=== PATIENT | female | born 1960 | race Caucasian/White ===

== ENCOUNTER 2017-01-12 08:33 | Outpatient (CLI) ==
[2015-10-13 14:41] VITALS: BMI 33.5
[2017-01-12 08:51] LABS: BASOPHILS # (AUTO) 0.1 K/uL (0-0.2); BASOPHILS % (AUTO) 0.4 % (0.0-3.0); EOSINOPHILS # (AUTO) 0.2 K/ul (0.0-0.7); EOSINOPHILS % (AUTO) 1.4 % (0.0-7.0); HEMATOCRIT 45.3 % (37.0-47.0); HEMOGLOBIN 15.4 g/dl (12.0-16.0); IMMATURE GRANULOCYTE % (AUTO) 0.3 % (0.0-5.0); LYMPHOCYTES % (AUTO) 33.8 (10.0-50.0); MEAN CORPUSCULAR HEMOGLOBIN 30.1 pg (27.0-31.0); MEAN CORPUSCULAR VOLUME 88.5 fl (81.0-99.0); MONOCYTES # (AUTO) 0.9 K/uL (0.4-2.0); MONOCYTES % (AUTO) 7.4 (0-10); NEUTROPHILS # (AUTO) 6.7 K/ul (2.0-6.9); NEUTROPHILS % (AUTO) 56.7; PLATELET COUNT 331 10^3/uL (140-440); RED BLOOD COUNT 5.12 10^6/ul (4.20-5.40); WHITE BLOOD COUNT 11.91 K/ul (4.6-10.2)
[2017-01-12 09:06] LABS: BILIRUBIN,URINE Negative (NEGATIVE); KETONES,URINE Negative (NEGATIVE); LEUKOCYTE ESTERASE ,URINE Negative (NEGATIVE); NITRITE,URINE Negative (NEGATIVE); PH,URINE 5.5 (5-9); PROTEIN,URINE Negative (NEGATIVE); URINE, BLOOD 2+ (NEGATIVE)
[2017-01-12 09:15] LABS: ADD URINE MICROSCOPIC YES
--- NOTE | 2017-01-12 09:21 | CT ---
EXAM: CT of the abdomen pelvis without contrast History: Abdominal pain. Comparison: 10/13/2015 Technique: Multiplanar CT images through the abdomen pelvis were obtained without the administratio n of IV contrast Findings: Lung bases are clear. No acute osseous abnormalities. Scoliosis of the lumbar spine and m oderate to severe degenerative disc disease within the lumbar spine. Status post cholecystectomy. Calcified granulomas within the liver and spleen. Long right lobe of the liver again noted. No peripancreatic inflammation. Atherosclerotic vascular calcifications. A drenal glands are unremarkable. No renal stones and no hydronephrosis. No bowel obstruction. Prom inent submucosal fat deposition again seen within the hurt of the right colon and cecum. Colonic di verticulosis. Bladder is not well distended. No free air and no ascites. Atrophic uterus. The vi sualized appendix is not dilated or inflamed. Impression: No acute intra-abdominal or pelvic process.
[2017-01-12 09:27] LABS: ALBUMIN 3.4 g/dL (3.4-5.0); ALBUMIN/GLOBULIN RATIO 0.85; ANION GAP 15.5; BILIRUBIN,TOTAL 0.32 mg/dL (0.00-1.20); BUN/CREATININE RATIO 22.05; CALCIUM 9.2 mg/dL (8.2-10.2); CHOL/HDL RATIO 5.7 (4.5-5.5); CREATININE 0.68 mg/dL (0.60-1.30); POTASSIUM 4.5 mmol/L (3.5-5.10); TOTAL PROTEIN 7.4 g/dL (6.4-8.2)
== END 2017-01-12 08:34 | disposition home or self-care (01) ==
LOC: RAD 08:33
PROVIDERS: ATTEND Nurse Practitioner Family
DX: R73.9 Hyperglycemia, unspecified (principal); Z00.00 Encounter for general adult medical examination without abnormal findings; R10.9 Unspecified abdominal pain; R30.9 Painful micturition, unspecified; R10.811 Right upper quadrant abdominal tenderness
CPT/HCPCS: 36415; 80053; 80061; 81001; 83036; 84443; 85025

== ENCOUNTER 2017-01-26 08:38 | Outpatient (CLI) ==
[2015-10-13 14:41] VITALS: BMI 33.5
[2017-01-26 09:04] LABS: BILIRUBIN,URINE Negative (NEGATIVE); KETONES,URINE Negative (NEGATIVE); LEUKOCYTE ESTERASE ,URINE Negative (NEGATIVE); NITRITE,URINE Negative (NEGATIVE); PH,URINE 5.5 (5-9); PROTEIN,URINE Negative (NEGATIVE); URINE, BLOOD 1+ (NEGATIVE)
[2017-01-26 09:13] LABS: ADD URINE MICROSCOPIC YES
== END 2017-01-26 08:39 | disposition home or self-care (01) ==
LOC: LAB 08:38
PROVIDERS: ATTEND Nurse Practitioner Family
DX: R31.9 Hematuria, unspecified (principal)
CPT/HCPCS: 81001

== ENCOUNTER 2017-02-04 09:24 | Outpatient (CLI) ==
[2015-10-13 14:41] VITALS: BMI 33.5
--- NOTE | 2017-02-04 10:07 | DI ---
EXAM: CERVICAL SPINE, 3 VIEWS HISTORY: Neck pain. FINDINGS: No comparison. There is at least mild diffuse facet arthropathy. Partial bony fusion of the C2 and C3 posterior elements cannot be excluded. Vertebral bodies have normal height and alignm ent. Intervertebral disc spaces are preserved. No scoliosis. Lateral masses of C1 and C2 are anselmo lly aligned and the odontoid process is intact. IMPRESSION: Facet arthropathy as described.
--- NOTE | 2017-02-04 10:09 | DI ---
EXAM: Six views of the lumbar spine. History: Lower back pain. Findings: Osteopenia. Atherosclerotic vascular calcifications. Severe levoscoliosis of the lumbar s pine. No definite fractures are seen. No subluxation. Moderate to severe multilevel degenerative disc space narrowing. Moderate to severe facet hypertrophy on the left at L5-S1. Scattered colonic stool. Cholecystectomy clips. Impression: 1. No acute osseous abnormality. 2. Moderate to severe degenerative changes. 3. Scoliosis.
--- NOTE | 2017-02-04 10:12 | DI ---
EXAM: Thoracic spine three view HISTORY: Pain in thoracic spine COMPARISON: None TECHNIQUE: Three views thoracic spine were performed FINDINGS: There is a moderate to severe rightward curvature thoracic and upper lumbar spine measuri ng 30 degrees using Ford technique, centered at T9-T10. Vertebral bodies normal height. No fracture . No subluxation. Mild multilevel chronic discogenic degenerative disease with intervertebral disc space narrowing osteophyte formation. Granulomatous calcification. IMPRESSION: 1. No fracture or subluxation. 2. Moderate to severe rightward curvature thoracic and upper lumbar spine measuring approximately 3 0 degrees. 3. Chronic discogenic degenerative disease
== END 2017-02-04 09:25 | disposition home or self-care (01) ==
LOC: RAD 09:24
PROVIDERS: ATTEND Nurse Practitioner Family
DX: M54.2 Cervicalgia (principal); M54.6 Pain in thoracic spine; M54.5 Low back pain

== ENCOUNTER 2017-04-18 08:32 | Outpatient (CLI) ==
[2015-10-13 14:41] VITALS: BMI 33.5
[2017-04-18 09:20] LABS: ALBUMIN 3.1 g/dL (3.4-5.0); ALBUMIN/GLOBULIN RATIO 0.84; ANION GAP 11.4; BILIRUBIN,TOTAL 0.28 mg/dL (0.00-1.20); BUN/CREATININE RATIO 15.62; CALCIUM 9.4 mg/dL (8.2-10.2); CHOL/HDL RATIO 6.6 (4.5-5.5); CREATININE 0.64 mg/dL (0.60-1.30); POTASSIUM 4.4 mmol/L (3.5-5.10); TOTAL PROTEIN 6.8 g/dL (6.4-8.2)
== END 2017-04-18 08:33 | disposition home or self-care (01) ==
LOC: LAB 08:32
PROVIDERS: ATTEND Nurse Practitioner Family
DX: E78.1 Pure hyperglyceridemia (principal); R73.03 Prediabetes
CPT/HCPCS: 36415; 80053; 80061; 83036

== ENCOUNTER 2018-10-02 08:20 | Emergency (ER) ==
[2018-10-02 08:30] VITALS: BP 127/73; TEMP 98.5; BMI 35.2
--- NOTE | 2018-10-02 09:18 | CT ---
EXAM: CT THORAX HISTORY: Cough, congestion. TECHNIQUE: CT thorax without intravenous contrast. Multiplanar images presented. COMPARISON: None FINDINGS: Normal heart size. No pericardial effusion. There is mild to moderate atherosclerotic disease inclu ding coronary artery level. Limited evaluation of the mediastinum and hilar structures without the a dministration of intravenous contrast agent. There are prominent mediastinal lymph nodes some of whi ch are calcified. No definite hilar mass is seen. The lungs reveal mild infiltrates in the left lower lobe. No susie consolidation. Tiny 13 mm pneuma tocele in the anterior right upper lobe incidentally noted. There is no vascular congestion, pneumot horax or pleural fluid. The bones reveal degenerative disc and facet disease of the spine and scoliosis. IMPRESSION: 1. Subtle pneumonia in the left lower lobe is suggested. No vascular congestion appear 2. Prominent mediastinal lymph nodes some which are calcified. These could be related to previous g ranulomatous disease. A malignant nature would be less likely within the differential. 3. Atherosclerosis.
--- NOTE | 2018-10-02 09:38 | ED.PDOC ---
General ED Provider: Dr. VERNA CRANDALL Chief Complaint: Cough Stated Complaint: cough, flu like symptoms Time Seen by Physician: 08:30 (seen with maria alejandra at all times also sunil on inital eval) Mode of Arrival: Walk-In Information Source: Patient Exam Limitations: No limitations Primary Care Provider: PATRICK HARRISON Nursing and Triage Documentation Reviewed and Agree: Yes Does patient meet sepsis criteria?: No System Inflammatory Response Syndrome: Not Applicable Sepsis Protocol: For patient's 13 years and over: Temp is 96.8 and below OR 101 and greater Pulse >90 BPM Resp >20/minute Acutely Altered Mental Status Are patient's symptoms suggestive of a new infection, such as: -Pneumonia -Skin, Soft Tissue -Endocarditis -UTI -Bone, Joint Infection -Implantable Device -Acute Abdominal Infection -Wound Infection -Meningitis -Blood Stream Catheter Infection -Unknown Respiratory Complaint Exam - Respiratory Complaint/Exam Onset/Duration: 5 days Symptoms Are: Still present Timing: Intermittent Initial Severity: Mild Current Severity: Mild Location: Nose, Throat, Chest Character: Reports: Non-productive cough Alleviating: Reports: None Associated Signs and Symptoms: Reports: URI, Nasal congestion, Sore throat. Denies: Rapid breathing, Dyspnea, Fever, Chills, Chest pain, Pleuritic chest pain, Wheezing, Hemoptysis, Dizziness, Calf pain, Calf swelling, Edema, Hoarseness, Sinus discomfort, Vomiting, Weight loss, Decreased oral intake, Increased thirst, Increased appetite, Increased urination Related History: Reports: Similar episode History of Healthcare-Acquired Pneumonia: No Related Surgical History: Reports: None Pulmonary Embolism Risk Factors: Smoking (3 only per day) Cardiac Risk Factors: Reports: None Pseudomonas Risk Factors: Reports: None Tuberculosis Risk Factors: Reports: None Status Asthmaticus Risk Factors: Reports: None Home Oxygen Use: No Recent Stress Test: No Recent Echo/LV Function: No Current Antibiotic Use: No Current Asthma Medication Use: No Respiratory Distress: None Inadequate Respiratory Effort: No Dysphagia Present: No Stridor Present: No JVD Present: No Accessory Muscle Use: No Retractions: Not Present Sinus Tenderness: None Grunting Respirations: No Kussmaul Respirations: No Differential Diagnoses: Pneumonia, Bronchitis Review of Systems - Review Of Systems Constitutional: Reports: Malaise Eyes: Reports: No symptoms Ears, Nose, Mouth, Throat: Reports: No symptoms Respiratory: Reports: Cough Cardiac: Reports: No symptoms GI: Reports: No symptoms : Reports: No symptoms Musculoskeletal: Reports: No symptoms Skin: Reports: No symptoms Neurological: Reports: No symptoms Endocrine: Reports: No symptoms Hematologic/Lymphatic: Reports: No symptoms All Other Systems: Reviewed and Negative Past Medical History - Past Medical History Previously Healthy: Yes Endocrine: Reports: None Cardiovascular: Reports: None Respiratory: Reports: None Hematological: Reports: None Gastrointestinal: Reports: None Genitourinary: Reports: None Neuro/Psych: Reports: None Musculoskeletal: Reports: None Cancer: Reports: None Last Menstrual Period: n/a - Surgical History General Surgical History: Reports: None - Family History Family History: Reports: None - Social History Smoking Status: Current every day smoker Hx Substance Use: Yes (Marijuana) Alcohol Screening: None - Immunizations Tetanus Shot up to Date: No Physical Exam - Physical Exam Appearance: Well-appearing, No pain distress, Well-nourished Eyes: BAILEY, EOMI, Conjunctiva clear ENT: Ears normal, Nose normal, Oropharynx normal Respiratory: Rhonchi Cardiovascular: RRR, Pulses normal, No rub, No murmur GI/: Soft, Nontender, No masses, Bowel sounds normal, No Organomegaly Musculoskeletal: Normal strength, ROM intact, No edema, No calf tenderness Skin: Warm, Dry, Normal color Neurological: Sensation intact, Motor intact, Reflexes intact, Cranial nerves intact, Alert, Oriented Psychiatric: Affect appropriate, Mood appropriate Interpretation - Radiology Interpretation Radiology Interpretation By: Radiologist Radiology Results: Positive (possible pneumonia) Critical Care Note - Critical Care Note Total Time (mins): 0 Course - Course Orders, Labs, Meds: Lab Review 10/02/18 08:35 Influ A Molecular Assay Negative by naat Influ B Molecular Assay Positive by naat H Orders Category Date Time Status FLU A/B MOLECULAR Stat LAB 10/02/18 08:34 Uncollected MOLECULAR GROUP A STREP Stat LAB 10/02/18 08:[address] CHEST W/O CONTRAST Stat RADS 10/02/18 08:30 Ordered Vital Signs: Temp Pulse Resp BP Pulse Ox 10/02/18 08:21 98.5 F 79 20 127/73 94 L Departure - Departure Time of Disposition: 09:38 Disposition: HOME SELF-CARE Discharge Problem: Cough, Influenza B Instructions: Pneumonia (ED) Condition: Good Pt referred to PMD for follow-up: Yes IPMP verified?: No Allergies/Adverse Reactions: Allergies ciprofloxacin [From Cipro] Allergy (Severe, Verified 10/02/18 08:34) confusion ciprofloxacin HCl [From Cipro] Allergy (Severe, Verified 10/02/18 08:34) confusion hydrocodone Adverse Reaction (Verified 10/02/18 08:34) Vomiting Home Medications: Ambulatory Orders 1 [No Reported Medications] 10/02/18 Disposition Discussed With: Patient
== END 2018-10-02 09:52 | disposition home or self-care (01) ==
LOC: ED 08:20
DX: R05 Cough (principal); J06.9 Acute upper respiratory infection, unspecified; R09.81 Nasal congestion; J02.9 Acute pharyngitis, unspecified; R53.81 Other malaise; Z72.0 Tobacco use; J11.1 Influenza due to unidentified influenza virus with other respiratory manifestations
CPT/HCPCS: 87502; 87651; 99283

== ENCOUNTER 2023-05-31 07:43 | Observation (INO) ==
--- NOTE | 2023-05-31 08:00 | ED.PDOC ---
General ED Provider: Dr. VERNA KRUSE MD Chief Complaint: Nausea/Vomiting Stated Complaint: Patient history of type 2 diabetes, hypercholesterolemia has discontinued all her medications and complains of frequent episodes of nausea, emesis, dry heaves and periumbilical abdominal pain for the past week. Patient states she is unable to tolerate solid or liquid foods. Denies diarrhea, fever, urinary symptoms. Time Seen by Provider: 05/31/23 07:53 Mode of Arrival: Walk-In Information Source: Patient Primary Care Provider: LADONNA DOWNEY PA-C Nursing and Triage Documentation Reviewed and Agree: Yes Review of Systems Review Of Systems Constitutional: Reports No symptoms Eyes: Reports No symptoms Ears, Nose, Mouth, Throat: Reports No symptoms Respiratory: Reports No symptoms Cardiac: Reports No symptoms GI: Reports Abdominal pain, Nausea, Poor appetite, Poor fluid intake and Vomiting : Reports No symptoms Musculoskeletal: Reports No symptoms Skin: Reports No symptoms Neurological: Reports No symptoms Endocrine: Reports No symptoms Hematologic/Lymphatic: Reports No symptoms All Other Systems: Reviewed and Negative [facility] Medical History Corneal abrasion S05.00XA - Injury of conjunctiva and corneal abrasion without foreign body, unspecified eye, initial encounter (ICD-10) Reassurance provided Rhinitis add cetirizine 10 mg po daily, flonase 1 spray each nostril daily increase fluids Use albuterol inhaler if needed f/u or go to ED if fever, sob occur J31.0 - Chronic rhinitis (ICD-10) Irregular heart rhythm ekg -will obtain tomorrow I49.9 - Cardiac arrhythmia, unspecified (ICD-10) Depression Doesn't make enough income F32.9 - Major depressive disorder, single episode, unspecified (ICD-10) Acute UTI ua in clinic today urine c&s macrobid 100mg po bid x 1 week N39.0 - URINARY TRACT INFECTION, SITE NOT SPECIFIED (ICD-10) Family History Grandfather/Grandmother Diabetes Depression Cardiac disease Social History Smoking and tobacco status: Current every day smoker Quit status: considering quitting Second hand smoke exposure: Yes Alcohol intake: never Substance use type: marijuana Sandy/hoahaoism: ORTHODOX Special sandy needs: No Agree to transfusion: Yes Adopted: No Caregiver/support person: No Foster care: No Household members: spouse Housing: apartment Marital status: M Lives independently: Yes Daycare: no daycare Number of children: 2 Number of grandchildren: 6 Highest education level completed: some college, no degree Financial difficulty paying for basics: not very hard service: No correction: No Current occupational status: employed Current occupation: [employer] Current occupational exposures/hazards: No Pets and animals: No Leisure activites: reading History of recent travel: No Sexually active: Yes Do you think of yourself as: straight/heterosexual Current gender identity: female Seatbelt use: always Helmet use: No Drives intoxicated or rides with intoxicated experienced truck driver: No Current diet type/program: regular Well-balanced diet: daily Caffeine: Yes (COFFEE SODA TEA) Eating out: 4 or more times/week Reads food labels: seldom or never During the past year weight has: increased > 10 lbs Water heater temperature set < 120 degrees: Yes Working smoke detector in home: Yes Fire extinguisher in home: Yes Carbon monoxide detector in home: Yes Firearms in home: No What type of physical activity do you participate in?: none Physical activity functional status: independent ambulation How many days of moderate to strenuous exercise, like a brisk walk, did you do in the last 7 days: 0 Surgical History History of musculoskeletal system surgery lypoma on back Z98.890 - Other specified postprocedural states (ICD-10) History of dental surgery Z92.89 - Personal history of other medical treatment (ICD-10) Status post cholecystectomy Z90.49 - Acquired absence of other specified parts of digestive tract (ICD- 10) Female Reproductive History Menstrual Hx Hysterectomy: No Physical Exam Physical Exam Appearance: Reports Ill-appearing Ill-appearing: Mild Pain Distress: None Eyes: Reports BAILEY, EOMI and Conjunctiva clear ENT: Reports Ears normal, Nose normal and Oropharynx normal Neck: Supple Respiratory: Reports Airway patent, Breath sounds clear and Breath sounds equal Cardiovascular: Reports RRR, Pulses normal, No rub and No murmur GI/: Reports Soft, No masses, Bowel sounds normal, No Organomegaly and Tender (There is minimal periumbilical tenderness there is no guarding there is no palpable masses noted.) Musculoskeletal: Reports Normal strength, ROM intact, No edema and No calf tenderness Skin: Reports Warm, Dry and Normal color Neurological: Reports Sensation intact and Reflexes intact Psychiatric: Reports Affect appropriate Interpretation EKG Interpretation Time of EKG #1: 07:58 Rate: Normal Rhythm: Sinus Ectopy: PVCs [place]: [place] ST Segment: Normal Interpretation: Radial 68 no sinus rhythm with marked sinus arrhythmia frequent PVCs 26 Radiology Interpretation Radiology Interpretation By: Radiologist Exam Interpreted: Portable CXR Xray Comments: Consistent with mild bronchial thickening consistent with bronchitis Radiology Interpretation By: Radiologist Exam Interpreted: CT Scan Xray Comments: Abdominal pelvic CT scan consistent with mild submucosal edema and thickeni Critical Care Note Critical Care Note Total Critical Care Time (mins): 0 Course Course 05/31/23 08:20 05/31/23 08:20 Orders, Labs, Meds: Lab Review 05/31/23 05/31/23 08:20 09:17 WBC 13.21 H RBC 4.86 Hgb 14.5 Hct 44.2 MCV 90.9 MCH 29.8 MCHC 32.8 RDW Coeff of Simon 14.0 Plt Count 329 Immature Gran % (Auto) 0.2 Neut % (Auto) 66.6 Lymph % (Auto) 25.4 Greer % (Auto) 6.1 Eos % (Auto) 1.3 Baso % (Auto) 0.4 Neut # (Auto) 8.8 H Lymph # (Auto) 3.4 Greer # (Auto) 0.8 Eos # (Auto) 0.2 Baso # (Auto) 0.1 Immature Gran # (Auto) 0.0 Sodium 138.1 Potassium 3.95 Chloride 105.2 Carbon Dioxide 26.5 Anion Gap 10.35 BUN 15.0 Creatinine 0.63 Estimated GFR (MDRD) 95.00 BUN/Creatinine Ratio 23.80 Glucose 177.0 H Calcium 9.28 Magnesium 1.61 Total Bilirubin 0.43 AST 27.1 ALT 18.9 Alkaline Phosphatase 98.6 Troponin I < 0.012 Total Protein 7.97 Albumin 4.14 Globulin 3.83 Albumin/Globulin Ratio 1.08 Lipase 133.3 Urine Color Light Urine Clarity Cloudy Urine pH 7.5 Ur Specific Cameron 1.020 Urine Protein 1+ H Urine Glucose (UA) Negative Urine Ketones Negative Urine Blood Trace-intact H Urine Nitrite Negative Urine Bilirubin Negative Urine Urobilinogen 0.2 Ur Leukocyte Esterase Negative Urine Microscopic RBC 2-5 Ur Squamous Epith Cells Not present Urine Bacteria 4+ Urine Mucus Trace Urine Opiates Screen Negative Ur Oxycodone Screen Negative Urine Methadone Screen Negative Ur Barbiturates Screen Negative U Tricyclic Antidepress Negative Ur Phencyclidine Scrn Negative Ur Amphetamine Screen Negative U Methamphetamines Scrn Negative U Benzodiazepines Scrn Negative Urine Cocaine Screen Negative U Cannabinoids Screen Positive H Orders Category Date Time Status ADMIT OBSERVATION [PLACE PATIENT OBSERVATION] .TO ADMISSION 05/31/23 09:55 Active MEDSURG (NON-MONITORED BED) EKG-(ED ONLY) Stat CARDIO 05/31/23 08:05 Completed NPO REMINDER: IMAGING ONCE CARE 05/31/23 08:06 Completed Orthostatic Vital Signs [ED ORTHOSTATIC VITAL SIGNS] . EMERGENCY 05/31/23 08:05 Active ONCE BLOOD CULTURE (ED ONLY) Stat LAB 05/31/23 Ordered CBC W/ AUTO DIFF Stat LAB 05/31/23 08:20 Completed CMP [COMPREHENSIVE METABOLIC PANEL] Stat LAB 05/31/23 08:20 Completed COVID [SARS COV-2 RNA RAPID CHRISTOPHER] Stat LAB 05/31/23 Uncollected DRUG SCREEN (RAPID FOR ED) [DRUG SCREEN, URINE, RAPID] LAB 05/31/23 09:17 Completed Stat LIPASE Stat LAB 05/31/23 08:20 Completed MAGNESIUM Stat LAB 05/31/23 08:20 Completed TROPONIN I Stat LAB 05/31/23 08:20 Completed URINALYSIS C & S IF INDICATED Stat LAB 05/31/23 09:17 Completed URINE CULTURE Stat LAB 05/31/23 09:17 Received Ketorolac Tromethamine [Toradol] Meds 05/31/23 09:30 Discontinued 30 mg IVP ONCE STA Metronidazole/Sodium Chloride [Flagyl 500 mg/100 ml] Meds 05/31/23 09:39 Active 500 mg in 100 ml IV ONCE Ondansetron HCl/Pf [Zofran 4 mg/2 ml] Meds 05/31/23 09:24 Discontinued 4 mg IVP ONCE STA Pantoprazole Sodium [Protonix IV] Meds 05/31/23 08:07 Discontinued 40 mg IVP ONCE STA Promethazine HCl [Phenergan 25 mg/ml Vial] Meds 05/31/23 08:06 Discontinued 25 mg IM ONCE ONE Sodium Chloride 0.9% [Sodium Chloride] 1,000 ml Meds 05/31/23 09:24 Active IV 100 mls/hr Sodium Chloride 0.9% [Sodium Chloride] 1,000 ml Meds 05/31/23 08:05 Discontinued IV BOLUS CHEST, 1V AP ONLY Stat RADS 05/31/23 08:[address] ABDOMEN/PELVIS W CONTRAST Stat RADS 05/31/23 08:06 Completed Medications Generic Name Dose Route Start Last Admin Trade Name Freq PRN Reason Stop Dose Admin Sodium Chloride 1,000 mls @ 100 mls/hr 05/31/23 09:24 Sodium Chloride IV 05/31/23 19:23 .Q10H STA Metronidazole 500 mg in 100 mls @ 100 mls/hr 05/31/23 09:39 Flagyl 500 Mg/100 Ml IV 05/31/23 10:38 ONCE ONE Discontinued Medications Generic Name Dose Route Start Last Admin Trade Name Freq PRN Reason Stop Dose Admin Sodium Chloride 1,000 mls @ 1,000 mls/hr 05/31/23 08:05 05/31/23 09:54 Sodium Chloride IV 05/31/23 09:04 Infused BOLUS STA Infusion Ketorolac Tromethamine 30 mg 05/31/23 09:30 Ketorolac Tromethamine 30 Mg/Ml Vial IVP 05/31/23 09:31 ONCE STA Ondansetron HCl 4 mg 05/31/23 09:24 Ondansetron Hcl/Pf 4 Mg/2 Ml Sdv IVP 05/31/23 09:25 ONCE STA Pantoprazole Sodium 40 mg 05/31/23 08:07 05/31/23 08:19 Pantoprazole Sodium 40 Mg Vial IVP 05/31/23 08:08 40 mg ONCE STA Administration Promethazine HCl 25 mg 05/31/23 08:06 05/31/23 08:19 Promethazine Inj 25 Mg/Ml IM 05/31/23 08:07 25 mg ONCE ONE Administration Vital Signs: Temp Pulse Resp BP Pulse Ox 05/31/23 07:57 97.4 F L 84 18 182/85 H 97 Discharge Plan Discharge Patient Disposition: PLACED OBSERVATION Discharge Problem: Acute dehydration, Intractable vomiting with nausea, Acute colitis Did you review [place] [employer] TE[employer]ER for ALL controlled substances?: Not Applicable ED Provider: AIXA,VERNA Condition: Stable Physician Progress Note: History obtained from the patient who has a history of type 2 diabetes, hypercholesterolemia who complains of frequent episodes of nausea, vomiting, dry heaves and vomiting for the past week. Patient states she has been unable to tolerate oral solid foods patient states she has discontinued all current medications months ago. Patient also complains of having periumbilical pain denies fever, chest pain, diarrhea, urinary symptoms. Patient does complain of occasional cough. 0758 EKG obtain consistent with sinus rhythm normal with marked sinus arrhythmia rate of 68 occasional PVCs. There is no ischemic changes there is no prolongation of VT QT intervals, which has been interpreted by myself Patient given IV fluids normal saline 1 L bolus over 1 hour, patient refused Zofran IV. Patient given Phenergan 25 mg IM and Protonix 40 mg IV Laboratory data urinalysis remarkable CBC is unremarkable except for white blood cell count of 13,200, the BMP is normal. Portable chest x-ray shows mild bronchial thickening suggestive of bronchitis. The abdominal pelvic CT scan with intravenous contrast is consistent with mild submucosal edema and thickening of the proximal ascending colon consistent with early colitis, interpretation by the radiologist after 2 sets of blood cultures patient administered Flagyl 500 milligrams IV piggyback Patient has a allergy to Cipro. Differential diagnosis: 1) acute ascending colitis 2) intractable nausea vomiting 3) dehydration Consulted the hospitalist Seun Martins at 0954 observation []
[2023-05-31] MEDS ORDERED: SODIUM CHLORIDE 1,000 ML IV STA ×2 (08:05→09:24)
[2023-05-31] MEDS ORDERED: PHENERGAN 25 MG/ML VIAL IM ONE (08:06)
[2023-05-31] MEDS ORDERED: PROTONIX IVP STA (08:07)
[2023-05-31 08:25] LABS: BASOPHILS # (AUTO) 0.1 K/uL (0-0.2); BASOPHILS % (AUTO) 0.4 % (0.0-3.0); EOSINOPHILS # (AUTO) 0.2 K/ul (0.0-0.7); EOSINOPHILS % (AUTO) 1.3 % (0.0-7.0); HEMATOCRIT 44.2 % (37.0-47.0); HEMOGLOBIN 14.5 g/dl (12.0-16.0); IMMATURE GRANULOCYTE % (AUTO) 0.2 % (0.0-5.0); LYMPHOCYTES # (AUTO) 3.4 K/uL (0.60-3.4); LYMPHOCYTES % (AUTO) 25.4 (10.0-50.0); MEAN CORPUSCULAR HEMOGLOBIN 29.8 pg (27.0-31.0); MEAN CORPUSCULAR HGB CONC 32.8 (31.8-35.4); MEAN CORPUSCULAR VOLUME 90.9 fl (81.0-99.0); MONOCYTES # (AUTO) 0.8 K/uL (0.4-2.0); MONOCYTES % (AUTO) 6.1 (0-10); NEUTROPHILS # (AUTO) 8.8 K/ul (2.0-6.9); NEUTROPHILS % (AUTO) 66.6 % (42.2-75.2); PLATELET COUNT 329 10^3/uL (140-440); RED BLOOD COUNT 4.86 10^6/ul (4.20-5.40); WHITE BLOOD COUNT 13.21 K/ul (4.6-10.2)
[2023-05-31 08:37] LABS: ALANINE AMINOTRANSFERASE 18.9 U/L (0-35); ALBUMIN 4.14 g/dL (3.5-5.0); ALKALINE PHOSPHATASE 98.6 U/L (53-141); ASPARTATE AMINO TRANSFERASE 27.1 U/L (14-36); BILIRUBIN,TOTAL 0.43 mg/dL (0.2-1.3); CALCIUM 9.28 mg/dL (8.4-10.2); CARBON DIOXIDE 26.5 mmol/L (22-30.0); CHLORIDE 105.2 mmol/L (98-107); CREATININE 0.63 mg/dL (0.60-1.30); LIPASE 133.3 U/L (23-300); MAGNESIUM 1.61 mg/dL (1.6-2.3); POTASSIUM 3.95 mmol/L (3.5-5.1); SODIUM 138.1 mmol/L (134.5-145); TOTAL PROTEIN 7.97 g/dL (6.3-8.2)
[2023-05-31 08:51] LABS: TROPONIN I < 0.012 ng/ml (0.0000-0.120)
--- NOTE | 2023-05-31 09:01 | DI ---
EXAM: CHEST RADIOGRAPH TECHNIQUE: Single frontal chest radiograph. COMPARISON: 05/04/2019 HISTORY: Cough FINDINGS: The heart and mediastinum are stable. Bilateral bronchial wall thickening is noted. Mild bibasilar atelectasis is identified. Otherwise, the lungs and pleural spaces are clear. No pneumothorax. No acute abnormality of the bones or soft tissues is identified. Stable scoliosis. IMPRESSION: Mild bronchial wall thickening is noted, concerning for bronchitis.
[2023-05-31] MEDS ORDERED: ZOFRAN 4 MG/2 ML IVP STA (09:24)
[2023-05-31] MEDS ORDERED: TORADOL IVP STA (09:30)
--- NOTE | 2023-05-31 09:31 | CT ---
EXAM: CT ABDOMEN AND PELVIS WITH CONTRAST HISTORY: Abdominal and pelvic pain. TECHNIQUE: CT acquisition of the abdomen and pelvis from the lower thorax through the pelvis followin g IV contrast administration. 2-D coronal and sagittal reformatted images were obtained from the axi al source images. IV Contrast: 50 mL of Omnipaque 350 administered. Oral Contrast: None. CT Dose Reduction Techniques Performed: Yes. COMPARISON: Reviewed. FINDINGS: Lower Thorax: Within normal limits. Liver: No mass. Normal morphology. Granulomatous disease. Biliary: Gallbladder absent. Pancreas: No mass or evidence of pancreatitis. No duct dilation. Spleen: No mass. No splenomegaly. Granulomatous disease. Adrenals: No mass. Kidneys/Ureters: No renal mass. No calculus or hydronephrosis. GI Tract: Mild submucosal edema and thickening of the proximal ascending colon. Colitis can have thi s appearance. Interval colonoscopy following treatment is recommended to exclude underlying process. Diverticulosis. Peritoneal Cavity: No ascites. No free air. Retroperitoneum: No fluid collection. Lymph Nodes: No lymphadenopathy. Vasculature: Scattered aortic atherosclerotic calcifications. No aortic or iliac aneurysm. Celiac, superior mesenteric, and inferior mesenteric arteries are grossly patent. Limited assessment of the portal and hepatic veins and IVC is unremarkable within limitations of the phase of IV contrast. Pelvis: No mass. Bladder is normal. Bones/Soft Tissues: No fracture or lytic lesion. Visualized abdominal wall soft tissues are unremark able. IMPRESSION: Mild submucosal edema and thickening of the proximal ascending colon. Colitis can have this appearan ce. Interval colonoscopy following treatment is recommended to exclude underlying process. All CT scans are performed using dose optimization techniques as appropriate to the performed exam an d include at least one of the following: Automated exposure control, adjustment of the mA and/or kV according t o size, and the use of iterative reconstruction technique.
[2023-05-31 09:35] LABS: BILIRUBIN,URINE Negative (NEGATIVE); CLARITY,URINE Cloudy (CLEAR); COLOR,URINE Light (YELLOW); GLUCOSE, URINE (UA) Negative (NEGATIVE); KETONES,URINE Negative (NEGATIVE); LEUKOCYTE ESTERASE ,URINE Negative (NEGATIVE); NITRITE,URINE Negative (NEGATIVE); PH,URINE 7.5 (5-9); PROTEIN,URINE 1+ (NEGATIVE); URINE, BLOOD Trace-intact (NEGATIVE); UROBILINOGEN,URINE 0.2 (0.2)
[2023-05-31 09:36] LABS: SQUAMOUS EPITHELIAL CELL,UR NOT PRESENT (0-5)
[2023-05-31] MEDS ORDERED: FLAGYL 500 MG/100 ML 500 MG/100 ML BAG IV ONE (09:39)
[2023-05-31 09:43] LABS: BACTERIA,URINE 4+ (NOT PRESENT); MUCUS,URINE TRACE (NOT PRESENT)
[2023-05-31 09:45] LABS: AMPHETAMINE SCREEN,URINE NEGATIVE (NEGATIVE); BARBITURATE SCREEN,URINE NEGATIVE (NEGATIVE); BENZODIAZEPINES SCREEN,URINE NEGATIVE (NEGATIVE); CANNABINOID SCREEN,URINE POSITIVE (NEGATIVE); COCAIN SCREEN,URINE NEGATIVE (NEGATIVE); METHADONE URINE SCREEN NEGATIVE (NEGATIVE); METHAMPHETAMINES SCREEN,URINE NEGATIVE (NEGATIVE); OPIATE SCREEN,URINE NEGATIVE (NEGATIVE); OXYCODONE URINE SCREEN NEGATIVE (NEGATIVE); PHENCYCLIDINE SCREEN,URINE NEGATIVE (NEGATIVE); TRICYCLIC ANTIDEPRESSANTS URIN NEGATIVE (NEGATIVE)
[2023-05-31 10:58] LABS: SARS COV-2 RNA RAPID NAAT NEGATIVE (NEGATIVE)
[2023-05-31 11:39] VITALS: BMI 34.8
--- NOTE | 2023-05-31 11:49 | PCM ---
Date of Service Date Seen by Provider: 05/31/23 Time Seen by Provider: 11:35 Admit Day/Time Admission Date: 05/31/23 Admission Time: 09:45 Reason for Admission Chief Complaint: BACK PAIN/VOMITING Hospital Provider Hospital Provider: QUIANA ARIAS, [facility] [place] Primary Care Physician: LADONNA DOWNEY PA-C History of Present Illness History of Present Illness: 63 yo female presented to the ER with complaints of nause and vomiting x 1 week. States she has had intermittent episodes of vomiting. Had chicken and mushroom soup last night for dinner and began vomiting again after she went to bed. Refuses to answer questions due to "being too nauseated". Has not vomited since she was given phenergen in the ER. Denies any fever, chills, body aches, SOB, chest pain, urinary symptoms, bloody stool or vomit. Upon questioning, patient states she has had "lots of belly problems in the past". Is unable to tell me any details regarding those problems. Has seen GI but doesn't know where. Has had a colonscopy in the past that was normal. Case Discussed With Case Discussed With: Patient's case was discussed with the ER Physicians, Dr. Thomas. [facility] Medical History Corneal abrasion S05.00XA - Injury of conjunctiva and corneal abrasion without foreign body, unspecified eye, initial encounter (ICD-10) Reassurance provided Rhinitis add cetirizine 10 mg po daily, flonase 1 spray each nostril daily increase fluids Use albuterol inhaler if needed f/u or go to ED if fever, sob occur J31.0 - Chronic rhinitis (ICD-10) Irregular heart rhythm ekg -will obtain tomorrow I49.9 - Cardiac arrhythmia, unspecified (ICD-10) Depression Doesn't make enough income F32.9 - Major depressive disorder, single episode, unspecified (ICD-10) Acute UTI ua in clinic today urine c&s macrobid 100mg po bid x 1 week N39.0 - URINARY TRACT INFECTION, SITE NOT SPECIFIED (ICD-10) Surgical History History of musculoskeletal system surgery lypoma on back Z98.890 - Other specified postprocedural states (ICD-10) History of dental surgery Z92.89 - Personal history of other medical treatment (ICD-10) Status post cholecystectomy Z90.49 - Acquired absence of other specified parts of digestive tract (ICD- 10) Family History Grandfather/Grandmother Diabetes Depression Cardiac disease Social History Smoking and tobacco status: Current every day smoker Quit status: considering quitting Second hand smoke exposure: Yes Alcohol intake: never Substance use type: marijuana Sandy/sabianist: MANDAEISM Special sandy needs: No Agree to transfusion: Yes Adopted: No Caregiver/support person: No Foster care: No Household members: spouse Housing: apartment Marital status: M Lives independently: Yes Daycare: no daycare Number of children: 2 Number of grandchildren: 6 Highest education level completed: some college, no degree Financial difficulty paying for basics: not very hard service: No residential: No Current occupational status: employed Current occupation: [employer] Current occupational exposures/hazards: No Pets and animals: No Leisure activites: reading History of recent travel: No Sexually active: Yes Do you think of yourself as: straight/heterosexual Current gender identity: female Seatbelt use: always Helmet use: No Drives intoxicated or rides with intoxicated auto driver: No Current diet type/program: regular Well-balanced diet: daily Caffeine: Yes (COFFEE SODA TEA) Eating out: 4 or more times/week Reads food labels: seldom or never During the past year weight has: increased > 10 lbs Water heater temperature set < 120 degrees: Yes Working smoke detector in home: Yes Fire extinguisher in home: Yes Carbon monoxide detector in home: Yes Firearms in home: No What type of physical activity do you participate in?: none Physical activity functional status: independent ambulation How many days of moderate to strenuous exercise, like a brisk walk, did you do in the last 7 days: 0 Allergies Allergies Allergy/AdvReac Type Severity Reaction Status Date / Time ciprofloxacin [From Cipro] Allergy Severe confusion Verified 03/03/23 12:59 ciprofloxacin HCl Allergy Severe confusion Verified 03/03/23 12:59 [From Cipro] hydrocodone AdvReac Vomiting Verified 05/31/23 08:05 metformin AdvReac Abdominal Verified 03/03/23 12:59 Pain sulfamethoxazole AdvReac Vomiting Verified 05/31/23 08:05 [From Bactrim] trimethoprim [From Bactrim] AdvReac Vomiting Verified 05/31/23 08:05 Current Medications Home Medications esomeprazole magnesium 20 mg capsule,delayed release (Nexium) 20 mg PO QDAY 08/18/22 [History Confirmed 05/31/23 Last Taken Unknown] multivitamin 1 tab PO QAM 08/18/22 [History Confirmed 05/31/23 Last Taken Unknown] atorvastatin 40 mg tablet 40 mg PO QDAY #90 tabs 08/31/22 [Rx Confirmed 05/31/23 Last Taken Unknown] blood sugar diagnostic (Unafin[employer]uch Ultra Test strips) #100 ea 08/31/22 [Rx Confirmed 05/31/23 Last Taken Unknown] blood-glucose meter (U[employer] Ultra2 Meter) #1 ea 08/31/22 [Rx Confirmed 05/31/23 Last Taken Unknown] lancets 28 gauge (mimoOnSoft Lancing Devices) #100 ea 08/31/22 [Rx Confirmed 05/31/23 Last Taken Unknown] metformin 500 mg tablet See Rx Instructions .Route .COMPLEX #30 tabs 10/22/22 [Rx Confirmed 05/31/23 Last Taken Unknown] fluconazole 150 mg tablet (Diflucan) 150 mg PO Q3D 2 doses #2 tabs 03/03/23 [Rx Confirmed 05/31/23 Last Taken Unknown] trazodone 150 mg tablet 150 mg PO QHS PRN insomnia #90 tabs 03/03/23 [Rx Confirmed 05/31/23 Last Taken Unknown] Home Famotidine (Famotidine Inj 20 Mg/2 Ml Vial) 20 mg IVP Q12HR YANIV Sodium Chloride (Sodium Chloride) 1,000 mls @ 100 mls/hr IV .Q10H STA Stop: 05/31/23 19:23 Last Admin: 05/31/23 10:12 Dose: 100 mls/hr Sodium Chloride (Sodium Chloride) 1,000 mls @ 100 mls/hr IV .Q10H YANIV CEFTRIAXONE/D5W 1 GM PREMIX (Rocephin 1 Gm/50 Ml D5w) 1 gm in 50 mls @ 75 mls/hr IV DAILY YANIV Stop: 06/03/23 10:29 Metronidazole (Flagyl 500 Mg/100 Ml) 500 mg in 100 mls @ 100 mls/hr IV Q8HR YANIV Stop: 06/03/23 12:59 Metoclopramide HCl (Metoclopramide Hcl 10 Mg/2 Ml) 5 mg IVP Q6H PRN PRN Reason: Nausea / Vomiting Ondansetron HCl (Ondansetron Hcl/Pf 4 Mg/2 Ml Sdv) 4 mg IVP Q6H PRN PRN Reason: Nausea / Vomiting Pantoprazole Sodium (Pantoprazole Sodium 40 Mg Vial) 40 mg IVP DAILY YANIV Discontinued Medications Sodium Chloride (Sodium Chloride) 1,000 mls @ 1,000 mls/hr IV BOLUS STA Stop: 05/31/23 09:04 Last Infusion: 05/31/23 09:54 Dose: Infused Metronidazole (Flagyl 500 Mg/100 Ml) 500 mg in 100 mls @ 100 mls/hr IV ONCE ONE Stop: 05/31/23 10:38 Last Admin: 05/31/23 10:12 Dose: 100 mls/hr Ketorolac Tromethamine (Ketorolac Tromethamine 30 Mg/Ml Vial) 30 mg IVP ONCE STA Stop: 05/31/23 09:31 Last Admin: 05/31/23 10:12 Dose: 30 mg Ondansetron HCl (Ondansetron Hcl/Pf 4 Mg/2 Ml Sdv) 4 mg IVP ONCE STA Stop: 05/31/23 09:25 Last Admin: 05/31/23 10:12 Dose: 4 mg Pantoprazole Sodium (Pantoprazole Sodium 40 Mg Vial) 40 mg IVP ONCE STA Stop: 05/31/23 08:08 Last Admin: 05/31/23 08:19 Dose: 40 mg Promethazine HCl (Promethazine Inj 25 Mg/Ml) 25 mg IM ONCE ONE Stop: 05/31/23 08:07 Last Admin: 05/31/23 08:19 Dose: 25 mg Review of Systems Constitutional: Reports No symptoms Head: Reports Normocephalic Eyes: Reports No symptoms Ears: Reports No symptoms Nose: Reports No symptoms Throat: Reports No symptoms Cardiovascular: Reports No symptoms Respiratory: Reports No symptoms Gastrointestinal: Reports Nausea, Vomiting and Abdominal pain Genitourinary: Reports No Symptoms Musculoskeletal: Reports No symptoms Endocrine: Reports No symptoms Hematology: Reports No symptoms Immunology: Reports No symptoms Neurological: Reports No symptoms Psychiatric: Reports No symptoms Physical examination Most Recent Vital Signs: Most Recent Vital Signs Temperature 97.7 F 05/31/23 11:28 Temperature Source Oral 05/31/23 11:28 Temperature Source Infrared 05/31/23 07:57 Pulse Rate 77 05/31/23 11:28 Respiratory Rate 16 05/31/23 11:28 Blood Pressure 182/85 H 05/31/23 07:57 Blood Pressure Left Arm 179/67 05/31/23 11:28 Blood Pressure Position Sitting 05/31/23 11:28 O2 Sat by Pulse Oximetry 96 05/31/23 11:28 Oxygen Delivery Method Nasal Cannula 05/31/23 11:28 Oxygen Flow Rate 2 05/31/23 11:28 Height 5 ft 4 in 05/31/23 11:28 Weight 202 lb 12.8 oz 05/31/23 11:28 Appearance: Positive No Apparent Distress, Alert and Oriented x3 and Ill- Appearing Skin: Positive Warm HEENT: Positive Normocephalic and PERRLA Neck: Positive Supple and Midline Trachea Chest/Lungs: Positive Symmetrical With Equal Breath Sounds, Clear to Auscultation Bilaterally and Good Air Movement all 4 Lung Carter Heart: Positive RRR and Pulses Normal GI/: Positive Soft, Nontender, No Distention and Bowel Sounds Hypoactive Musculoskeletal: Positive Not Examined Extremities: Positive Intact Peripheral Pulses, Stable Joints Without Laxity and Good ROM in All Joints Neurological: Positive Sensation Intact, Motor intact, Reflexes Intact, Alert, Oriented and Muscle Strength 5/5 in Upper and Lower Extremities Bilaterally Psychiatric: Positive Oriented x4 Labs This Visit Labs This Visit: Labs This Visit 05/31/23 05/31/23 05/31/23 08:20 09:17 10:15 WBC 13.21 H RBC 4.86 Hgb 14.5 Hct 44.2 MCV 90.9 MCH 29.8 MCHC 32.8 RDW Coeff of Simon 14.0 Plt Count 329 Immature Gran % (Auto) 0.2 Neut % (Auto) 66.6 Lymph % (Auto) 25.4 [place] % (Auto) 6.1 Eos % (Auto) 1.3 Baso % (Auto) 0.4 Neut # (Auto) 8.8 H Lymph # (Auto) 3.4 [place] # (Auto) 0.8 Eos # (Auto) 0.2 Baso # (Auto) 0.1 Immature Gran # (Auto) 0.0 Sodium 138.1 Potassium 3.95 Chloride 105.2 Carbon Dioxide 26.5 Anion Gap 10.35 BUN 15.0 Creatinine 0.63 Estimated GFR (MDRD) 95.00 BUN/Creatinine Ratio 23.80 Glucose 177.0 H Calcium 9.28 Magnesium 1.61 Total Bilirubin 0.43 AST 27.1 ALT 18.9 Alkaline Phosphatase 98.6 Troponin I < 0.012 Total Protein 7.97 Albumin 4.14 Globulin 3.83 Albumin/Globulin Ratio 1.08 Lipase 133.3 Urine Color Light Urine Clarity Cloudy Urine pH 7.5 Ur Specific Belle 1.020 Urine Protein 1+ H Urine Glucose (UA) Negative Urine Ketones Negative Urine Blood Trace-intact H Urine Nitrite Negative Urine Bilirubin Negative Urine Urobilinogen 0.2 Ur Leukocyte Esterase Negative Urine Microscopic RBC 2-5 Ur Squamous Epith Cells Not present Urine Bacteria 4+ Urine Mucus Trace Urine Opiates Screen Negative Ur Oxycodone Screen Negative Urine Methadone Screen Negative Ur Barbiturates Screen Negative U Tricyclic Antidepress Negative Ur Phencyclidine Scrn Negative Ur Amphetamine Screen Negative U Methamphetamines Scrn Negative U Benzodiazepines Scrn Negative Urine Cocaine Screen Negative U Cannabinoids Screen Positive H SARS CoV-2 RNA Rapid CHRISTOPHER Negative Imaging Imaging: EXAM: CT ABDOMEN AND PELVIS WITH CONTRAST FINDINGS: Lower Thorax: Within normal limits. Liver: No mass. Normal morphology. Granulomatous disease. Biliary: Gallbladder absent. Pancreas: No mass or evidence of pancreatitis. No duct dilation. Spleen: No mass. No splenomegaly. Granulomatous disease. Adrenals: No mass. Kidneys/Ureters: No renal mass. No calculus or hydronephrosis. GI Tract: Mild submucosal edema and thickening of the proximal ascending colon. Colitis can have this appearance. Interval colonoscopy following treatment is recommended to exclude underlying process. Diverticulosis. Peritoneal Cavity: No ascites. No free air. Retroperitoneum: No fluid collection. Lymph Nodes: No lymphadenopathy. Vasculature: Scattered aortic atherosclerotic calcifications. No aortic or iliac aneurysm. Celiac, superior mesenteric, and inferior mesenteric arteries are grossly patent. Limited assessment of the portal and hepatic veins and IVC is unremarkable within limitations of the phase of IV contrast. Pelvis: No mass. Bladder is normal. Bones/Soft Tissues: No fracture or lytic lesion. Visualized abdominal wall soft tissues are unremarkable. IMPRESSION: Mild submucosal edema and thickening of the proximal ascending colon. Colitis can have this appearance. Interval colonoscopy following treatment is recommended to exclude underlying process. Review Statement Review Statement: I have independently reviewed and interpreted the labs/EKGs/imaging that were ordered by the ER provider. I have reviewed all outside records that are available currently in our EMR including imaging/notes/labs from previous visits. Plan Plan: 1. Colitis - clear liquid diet advance as tolerated, NS@100mL/hr, flagyl and rocephin, protonix, patient refused pepcid because it "makes her sick" 2. Intractable N/V - zofran Q6H prn and reglan Q6H prn, clear liquid diet 3. UTI - asymptomatic, bacteria on UA, receiving rocephin for above, urine culture pending Stopped taking all home medications for chronic conditions "a long time ago". DVT Prophylaxis: Up with asssitance Time Spent: Greater than 80 minutes spent with patient, 50% of the time spent with this patient was devoted to counseling and coordination of care. [facility] Plannin minutes spent discussing advance care planning. Disposition: Admit to: Med/surg Observation Full Code Discussed Plan of Care with Dr. Raleigh Domingo. Medications Medication Orders: Medications Ordered Category Date Time Status Ceftriaxone/D5w 1 gm Premix [Rocephin 1 gm/50 ml D5w] Meds 05/31/23 10:30 Active 1 gm in 50 ml IV DAILY Famotidine Inj [Pepcid] Meds 05/31/23 21:00 Active 20 mg IVP Q12HR Metoclopramide HCl [Reglan] Meds 05/31/23 10:25 Active 5 mg IVP Q6H PRN Metronidazole/Sodium Chloride [Flagyl 500 mg/100 ml] Meds 05/31/23 13:00 Active 500 mg in 100 ml IV Q8HR Ondansetron HCl/Pf [Zofran 4 mg/2 ml] Meds 05/31/23 10:25 Active 4 mg IVP Q6H PRN Pantoprazole Sodium [Protonix IV] Meds 05/31/23 10:30 Active 40 mg IVP DAILY Sodium Chloride 0.9% [Sodium Chloride] 1,000 ml Meds 05/31/23 09:24 Active IV 100 mls/hr Sodium Chloride 0.9% [Sodium Chloride] 1,000 ml Meds 05/31/23 10:30 Active IV 100 mls/hr
[2023-05-31] MEDS: PROTONIX IVP SCH (12:47)
[2023-05-31] MEDS: ROCEPHIN 1 GM/50 ML D5W 1 GM/50 ML BAG IV SCH (12:47)
[2023-05-31] MEDS: REGLAN IVP PRN ×2 (12:47→20:44)
[2023-05-31] MEDS: SODIUM CHLORIDE 1,000 ML IV SCH ×2 (13:00→22:34)
[2023-05-31] MEDS: FLAGYL 500 MG/100 ML 500 MG/100 ML BAG IV SCH ×2 (14:22→20:31)
[2023-05-31] MEDS: ZOFRAN 4 MG/2 ML IVP PRN (14:31)
[2023-05-31] MEDS: PEPCID IVP SCH (20:33)
[2023-06-01] MEDS: ZOFRAN 4 MG/2 ML IVP PRN ×2 (01:57→17:57)
[2023-06-01] MEDS: FLAGYL 500 MG/100 ML 500 MG/100 ML BAG IV SCH (04:46)
[2023-06-01 05:43] LABS: BASOPHILS # (AUTO) 0.1 K/uL (0-0.2); BASOPHILS % (AUTO) 0.3 % (0.0-3.0); EOSINOPHILS % (AUTO) 0.2 % (0.0-7.0); HEMATOCRIT 42.4 % (37.0-47.0); HEMOGLOBIN 13.9 g/dl (12.0-16.0); IMMATURE GRANULOCYTE # (AUTO) 0.1 (0.0-1.0); IMMATURE GRANULOCYTE % (AUTO) 0.5 % (0.0-5.0); LYMPHOCYTES # (AUTO) 2.9 K/uL (0.60-3.4); LYMPHOCYTES % (AUTO) 17.1 (10.0-50.0); MEAN CORPUSCULAR HEMOGLOBIN 29.5 pg (27.0-31.0); MEAN CORPUSCULAR HGB CONC 32.8 (31.8-35.4); MONOCYTES # (AUTO) 1.4 K/uL (0.4-2.0); NEUTROPHILS # (AUTO) 12.7 K/ul (2.0-6.9); NEUTROPHILS % (AUTO) 73.9 % (42.2-75.2); PLATELET COUNT 313 10^3/uL (140-440); RDW COEFFICIENT OF VARIATION 13.5 % (11.6-14.8); RED BLOOD COUNT 4.71 10^6/ul (4.20-5.40); WHITE BLOOD COUNT 17.17 K/ul (4.6-10.2)
[2023-06-01 06:06] LABS: ALANINE AMINOTRANSFERASE 17.2 U/L (0-35); ALBUMIN 3.91 g/dL (3.5-5.0); ALKALINE PHOSPHATASE 81.9 U/L (53-141); ASPARTATE AMINO TRANSFERASE 22.4 U/L (14-36); BILIRUBIN,TOTAL 0.45 mg/dL (0.2-1.3); BLOOD UREA NITROGEN 9.4 mg/dL (7-17); CALCIUM 8.63 mg/dL (8.4-10.2); CARBON DIOXIDE 28.9 mmol/L (22-30.0); CHLORIDE 99.7 mmol/L (98-107); CREATININE 0.55 mg/dL (0.60-1.30); GLUCOSE 137.7 mg/dL (74-106); POTASSIUM 3.55 mmol/L (3.5-5.1); SODIUM 132.8 mmol/L (134.5-145); TOTAL PROTEIN 7.5 g/dL (6.3-8.2)
[2023-06-01] MEDS: REGLAN IVP PRN (07:57)
[2023-06-01] MEDS ORDERED: COMPAZINE IVP ONE (08:56)
[2023-06-01] MEDS: ROCEPHIN 1 GM/50 ML D5W 1 GM/50 ML BAG IV SCH (09:28)
[2023-06-01] MEDS: PROTONIX IVP SCH (09:28)
[2023-06-01] MEDS: PEPCID IVP SCH (09:29)
[2023-06-01] MEDS: SODIUM CHLORIDE 1,000 ML IV SCH ×2 (09:45→17:56)
--- NOTE | 2023-06-01 10:39 | PCM.PROG ---
Date/Time Seen Date Seen by Provider: 06/01/23 Time Seen by Provider: 08:50 Provider Provider: QUIANA ARIAS, [facility] Chief Complaint Chief Complaint: BACK PAIN/VOMITING Subjective Subjective: Continues to be nauseated and vomiting. Has been unable to tolerate clear liquids despite nausea medication Heavy smoker - requiring oxygen at this time Objective Appearance: Positive No Apparent Distress, Alert and Oriented x3 and Ill- Appearing Chest/Lungs: Positive Symmetrical With Equal Breath Sounds, Clear to Auscultation Bilaterally and Good Air Movement all 4 Lung Carter Heart: Positive RRR and Pulses Normal GI/: Positive Soft, Nontender and Bowel Sounds Normal Musculoskeletal: Positive Not Examined Neurological: Positive Sensation Intact, Motor intact, Reflexes Intact, Alert, Oriented and Muscle Strength 5/5 in Upper and Lower Extremities Bilaterally Vital Signs Vital Signs: Vital Signs: Last 24 Hours 05/31/23 11:28 05/31/23 11:28 05/31/23 12:00 Temperature 97.7 F Temperature Source Oral Pulse Rate 77 Respiratory Rate 16 Blood Pressure Blood Pressure Mean Blood Pressure Left Arm 179/67 Blood Pressure Location Blood Pressure Position Sitting O2 Sat by Pulse Oximetry 96 Oxygen Delivery Method Nasal Cannula Nasal Cannula Nasal Cannula Oxygen Flow Rate 2 2 Height 5 ft 4 in Weight 202 lb 12.8 oz 05/31/23 12:54 05/31/23 14:00 05/31/23 14:00 Temperature 97.4 F L Temperature Source Temporal Artery Scan Pulse Rate 84 Respiratory Rate 18 Blood Pressure 170/72 H Blood Pressure Mean 104 Blood Pressure Left Arm Blood Pressure Location Left Arm Blood Pressure Position O2 Sat by Pulse Oximetry 96 Oxygen Delivery Method Nasal Cannula Nasal Cannula Nasal Cannula Oxygen Flow Rate 2 Height Weight 05/31/23 15:00 05/31/23 16:00 05/31/23 17:00 Temperature Temperature Source Pulse Rate Respiratory Rate Blood Pressure Blood Pressure Mean Blood Pressure Left Arm Blood Pressure Location Blood Pressure Position O2 Sat by Pulse Oximetry Oxygen Delivery Method Nasal Cannula Nasal Cannula Nasal Cannula Oxygen Flow Rate Height Weight 05/31/23 17:43 05/31/23 18:00 05/31/23 19:00 Temperature 98 F Temperature Source Tympanic Pulse Rate 90 Respiratory Rate 24 H Blood Pressure 154/76 H Blood Pressure Mean 102 Blood Pressure Left Arm Blood Pressure Location Left Arm Blood Pressure Position Supine O2 Sat by Pulse Oximetry 95 Oxygen Delivery Method Nasal Cannula Room Air Nasal Cannula Oxygen Flow Rate Height Weight 05/31/23 20:00 05/31/23 21:00 05/31/23 21:01 Temperature Temperature Source Pulse Rate Respiratory Rate Blood Pressure Blood Pressure Mean Blood Pressure Left Arm Blood Pressure Location Blood Pressure Position O2 Sat by Pulse Oximetry Oxygen Delivery Method Nasal Cannula Nasal Cannula Nasal Cannula Oxygen Flow Rate 2 Height Weight 05/31/23 21:12 05/31/23 22:00 05/31/23 23:00 Temperature 99.2 F Temperature Source Temporal Artery Scan Pulse Rate 90 Respiratory Rate 21 H Blood Pressure 147/68 H Blood Pressure Mean 94 Blood Pressure Left Arm Blood Pressure Location Left Arm Blood Pressure Position Supine O2 Sat by Pulse Oximetry 97 Oxygen Delivery Method Room Air Room Air Room Air Oxygen Flow Rate Height Weight 06/01/23 00:00 06/01/23 01:00 06/01/23 02:00 Temperature 98.9 F Temperature Source Temporal Artery Scan Pulse Rate 91 Respiratory Rate 19 Blood Pressure 145/70 H Blood Pressure Mean 95 Blood Pressure Left Arm Blood Pressure Location Left Arm Blood Pressure Position Supine O2 Sat by Pulse Oximetry 97 Oxygen Delivery Method Room Air Room Air Room Air Oxygen Flow Rate 2 Height Weight 06/01/23 02:00 06/01/23 03:00 06/01/23 04:00 Temperature Temperature Source Pulse Rate Respiratory Rate Blood Pressure Blood Pressure Mean Blood Pressure Left Arm Blood Pressure Location Blood Pressure Position O2 Sat by Pulse Oximetry Oxygen Delivery Method Room Air Room Air Room Air Oxygen Flow Rate Height Weight 06/01/23 05:00 06/01/23 05:15 06/01/23 05:50 Temperature 97.6 F Temperature Source Temporal Artery Scan Pulse Rate 97 Respiratory Rate 18 Blood Pressure 152/75 H Blood Pressure Mean 100 Blood Pressure Left Arm Blood Pressure Location Left Arm Blood Pressure Position Supine O2 Sat by Pulse Oximetry 95 Oxygen Delivery Method Nasal Cannula Nasal Cannula Nasal Cannula Oxygen Flow Rate 2 Height Weight 06/01/23 07:00 06/01/23 08:00 06/01/23 09:00 Temperature Temperature Source Pulse Rate Respiratory Rate Blood Pressure Blood Pressure Mean Blood Pressure Left Arm Blood Pressure Location Blood Pressure Position O2 Sat by Pulse Oximetry Oxygen Delivery Method Nasal Cannula Nasal Cannula Nasal Cannula Oxygen Flow Rate Height Weight 06/01/23 10:00 06/01/23 10:27 Temperature 97.7 F Temperature Source Tympanic Pulse Rate 83 Respiratory Rate 18 Blood Pressure 90/49 L Blood Pressure Mean 62 Blood Pressure Left Arm Blood Pressure Location Left Arm Blood Pressure Position Sitting O2 Sat by Pulse Oximetry 93 L 93 L Oxygen Delivery Method Nasal Cannula Nasal Cannula Oxygen Flow Rate 2 2 Height Weight Lab Results Lab Results: Lab Results: Last 24 Hours 06/01/23 05/31/23 05:19 10:15 WBC 17.17 H RBC 4.71 Hgb 13.9 Hct 42.4 MCV 90.0 MCH 29.5 MCHC 32.8 RDW Coeff of Simon 13.5 Plt Count 313 Immature Gran % (Auto) 0.5 Neut % (Auto) 73.9 Lymph % (Auto) 17.1 [place] % (Auto) 8.0 Eos % (Auto) 0.2 Baso % (Auto) 0.3 Neut # (Auto) 12.7 H Lymph # (Auto) 2.9 [place] # (Auto) 1.4 Eos # (Auto) 0.0 Baso # (Auto) 0.1 Immature Gran # (Auto) 0.1 Sodium 132.8 L Potassium 3.55 Chloride 99.7 Carbon Dioxide 28.9 Anion Gap 7.75 BUN 9.4 Creatinine 0.55 L Estimated GFR (MDRD) 111.00 BUN/Creatinine Ratio 17.09 Glucose 137.7 H Calcium 8.63 Total Bilirubin 0.45 AST 22.4 ALT 17.2 Alkaline Phosphatase 81.9 Total Protein 7.50 Albumin 3.91 Globulin 3.59 Albumin/Globulin Ratio 1.08 SARS CoV-2 RNA Rapid CHRISTOPHER Negative Additional Comments Additional Comments: I have independently reviewed and interpreted the labs/EKGs/imaging ordered during this hospital stay. I have reviewed outside records that are available in our EMR that pertain to medical stay including imaging/notes/labs from previous visits. Active Medications Active Medications: Medications Generic Name Dose Route Start Last Admin Trade Name Freq PRN Reason Stop Dose Admin Piperacillin Sod/Tazobactam 100 mls @ 200 mls/hr 06/01/23 12:00 Sod 3.375 gm/ Sodium Chloride IV 06/04/23 11:59 Q6HR YANIV Sodium Chloride 1,000 mls @ 125 mls/hr 06/01/23 08:58 Sodium Chloride IV .Q8H YANIV Metoclopramide HCl 5 mg 05/31/23 10:25 06/01/23 07:57 Metoclopramide Hcl 10 Mg/2 Ml IVP 5 mg Q6H PRN Administration Nausea / Vomiting Ondansetron HCl 4 mg 05/31/23 10:25 06/01/23 01:57 Ondansetron Hcl/Pf 4 Mg/2 Ml Sdv IVP 4 mg Q6H PRN Administration Nausea / Vomiting Pantoprazole Sodium 40 mg 05/31/23 10:30 06/01/23 09:28 Pantoprazole Sodium 40 Mg Vial IVP 40 mg DAILY YANIV Administration Plan Plan: 1. Colitis - clear liquid diet advance as tolerated, NS@100mL/hr, flagyl and rocephin, protonix, patient refused pepcid because it "makes her sick" 2. Intractable N/V - zofran Q6H prn and reglan Q6H prn, clear liquid diet, 1 dose of compazine ordered 3. Hyponatremia - sodium dropped despite iv fluids, increased rate on fluids 4. UTI - asymptomatic, bacteria on UA, receiving rocephin for above, urine culture pending 5. Acute Hypoxic Respiratory Failure - likely due to COPD, smoked for many years, wean off oxygen as tolerated for goal sat >92% Stopped taking all home medications for chronic conditions "a long time ago". DVT Prophylaxis: Up with assistance Review Statement Review Statement: I have personally discussed and reviewed the patient's visit/currently labs/imaging/decision making with Dr. Domingo, my supervising attending. Greater that 50 minutes spent with patient, 50% of the time spent with this patient was devoted to counseling and coordination of care.
[2023-06-01] MEDS: ZOSYN 3.375 GM 3.375 GM in SODIUM CHLORIDE 100ML 100 ML IV SCH ×3 (11:36→23:09)
[2023-06-02] MEDS: SODIUM CHLORIDE 1,000 ML IV SCH (03:05)
[2023-06-02] MEDS: ZOSYN 3.375 GM 3.375 GM in SODIUM CHLORIDE 100ML 100 ML IV SCH (05:11)
[2023-06-02 06:34] LABS: ALANINE AMINOTRANSFERASE 13.6 U/L (0-35); ALBUMIN 3.02 g/dL (3.5-5.0); ALKALINE PHOSPHATASE 57.5 U/L (53-141); ASPARTATE AMINO TRANSFERASE 19.6 U/L (14-36); BILIRUBIN,TOTAL 0.51 mg/dL (0.2-1.3); BLOOD UREA NITROGEN 11.1 mg/dL (7-17); CALCIUM 8.18 mg/dL (8.4-10.2); CHLORIDE 106.4 mmol/L (98-107); CREATININE 0.72 mg/dL (0.60-1.30); GLUCOSE 105.5 mg/dL (74-106); POTASSIUM 3.7 mmol/L (3.5-5.1); SODIUM 135.8 mmol/L (134.5-145); TOTAL PROTEIN 5.86 g/dL (6.3-8.2)
[2023-06-02 06:55] LABS: BASOPHILS # (AUTO) 0.1 K/uL (0-0.2); BASOPHILS % (AUTO) 0.7 % (0.0-3.0); EOSINOPHILS # (AUTO) 0.2 K/ul (0.0-0.7); EOSINOPHILS % (AUTO) 1.5 % (0.0-7.0); HEMATOCRIT 38.5 % (37.0-47.0); HEMOGLOBIN 12.4 g/dl (12.0-16.0); IMMATURE GRANULOCYTE % (AUTO) 0.4 % (0.0-5.0); LYMPHOCYTES # (AUTO) 4.2 K/uL (0.60-3.4); LYMPHOCYTES % (AUTO) 39.8 (10.0-50.0); MEAN CORPUSCULAR HEMOGLOBIN 29.7 pg (27.0-31.0); MEAN CORPUSCULAR HGB CONC 32.2 (31.8-35.4); MEAN CORPUSCULAR VOLUME 92.3 fl (81.0-99.0); MONOCYTES # (AUTO) 1.1 K/uL (0.4-2.0); MONOCYTES % (AUTO) 10.3 (0-10); NEUTROPHILS % (AUTO) 47.3 % (42.2-75.2); PLATELET COUNT 264 10^3/uL (140-440); RED BLOOD COUNT 4.17 10^6/ul (4.20-5.40)
[2023-06-02] MEDS: PROTONIX IVP SCH (08:33)
[2023-06-02 10:17] VITALS: BP 115/59; PULSE 64; RESP 15; TEMP 98.2
--- NOTE | 2023-06-02 13:23 | DCSUM ---
Admission Date Admission Date: 05/31/23 Discharge Date Discharge Date: 06/02/23 Admission Diagnosis Admission Diagnosis: 1. Colitis 2. Intractable N/V 3. UTI Discharge Diagnosis Discharge Diagnosis: 1. Colitis - Improving 2. Intractable N/V - Resolved 3. Hyponatremia - Resolved 4. UTI - Ruled out 5. Acute Hypoxic Respiratory Failure - Resolved Hospital Provider Hospital Provider: QUIANA ARIAS, [facility] [place] Primary Care Physician: LADONNA DOWNEY PA-C Summary of History and Physical Summary of History and Physical: 63 yo female presented to the ER with complaints of nause and vomiting x 1 week. States she has had intermittent episodes of vomiting. Had chicken and mushroom soup last night for dinner and began vomiting again after she went to bed. Refuses to answer questions due to "being too nauseated". Has not vomited since she was given phenergen in the ER. Denies any fever, chills, body aches, SOB, chest pain, urinary symptoms, bloody stool or vomit. Upon questioning, patient states she has had "lots of belly problems in the past". Is unable to tell me any details regarding those problems. Has seen GI but doesn't know where. Has had a colonscopy in the past that was normal. Hospital Course Subjective: During course of stay, colitis was treated initialy with flagyl and rocephin. WBC increased on this regimen on 05/31. Switched antibiotic to zosyn and WBC count decreased appropriately. In addition, has been receiving reglan prn and protonix. Initially, vomiting was not controlled with zofran and reglan. Required compazine yesterday which resolved the nausea and vomiting. Advanced diet yesterday to full liquid and tolerated well. Hyponatremia was noted on admission. Received NS@100mL/hr and sodium further dropped despite fluids. Increased fluid rate on 05/31 and sodium increased to n ormal range today. UTI suspicious on UA. Treated with rocephin. Patient asymptomatic. Urine culture negative for growth. Initially was requiring 2L of oxygen as well. Patient is heavy smoker and was not taking adequate breaths due to above condition. No wheezing or SOB noted. Weaned off oxygen and no longer required. Patient has not been taking home medications for extended period of time. Asked if she was interested in refills at this time and she declined. Plans to follow up with PCP to address chronic condition needs. Appearance: Pleasant, No Apparent Distress and Alert HEENT: MMM and Supple CVS: No Murmur Abdomen: Soft, Non-Tender and No Distention Respiratory: No Dyspnea Extremities: No Edema Vital Signs: Most Recent Vital Signs Temperature 98.2 F 06/02/23 10:00 Temperature Source Oral 06/02/23 10:00 Temperature Source Infrared 05/31/23 07:57 Pulse Rate 64 06/02/23 10:00 Respiratory Rate 15 06/02/23 10:00 Blood Pressure 115/59 L 06/02/23 10:00 Blood Pressure Mean 77 06/02/23 10:00 Blood Pressure Left Arm 179/67 05/31/23 11:28 Blood Pressure Location Right Arm 06/02/23 10:00 Blood Pressure Position Sitting 06/02/23 10:00 O2 Sat by Pulse Oximetry 94 L 06/02/23 10:00 Oxygen Delivery Method Room Air 06/02/23 10:00 Oxygen Flow Rate 2 06/02/23 10:00 Height 5 ft 4 in 05/31/23 11:28 Weight 202 lb 12.8 oz 05/31/23 11:28 Lab Results Last 24 Hours: 06/02/23 05:40 WBC 10.50 H D RBC 4.17 L Hgb 12.4 Hct 38.5 MCV 92.3 MCH 29.7 MCHC 32.2 RDW Coeff of Simon 14.0 Plt Count 264 Immature Gran % (Auto) 0.4 Neut % (Auto) 47.3 Lymph % (Auto) 39.8 Rogers % (Auto) 10.3 H Eos % (Auto) 1.5 Baso % (Auto) 0.7 Neut # (Auto) 5.0 Lymph # (Auto) 4.2 H Rogers # (Auto) 1.1 Eos # (Auto) 0.2 Baso # (Auto) 0.1 Immature Gran # (Auto) 0.0 Sodium 135.8 Potassium 3.70 Chloride 106.4 Carbon Dioxide 28.0 Anion Gap 5.10 BUN 11.1 Creatinine 0.72 Estimated GFR (MDRD) 81.00 BUN/Creatinine Ratio 15.41 Glucose 105.5 Calcium 8.18 L Total Bilirubin 0.51 AST 19.6 ALT 13.6 Alkaline Phosphatase 57.5 Total Protein 5.86 L Albumin 3.02 L Globulin 2.84 Albumin/Globulin Ratio 1.06 Discharge Instructions Discharge Planning: Discharge Planning > 40 minutes If patient is discharged with left ventricular systolic dysfunction: NA Discharged with a beta timur? [] If no, why not? [] Discharged with an gloria/arb? [] If no, why not? [] DX: Colitis, Hyponatremia Full liquid diet - advance as tolerated like discussed Activity as tolerated Follow-up with PCP next week. New Medications: Augmentin 875mg twice a day x 7 days Reglan 5 mg every 6 hours as needed for nausea Protonix 40 mg daily Discharge Medications: Medications at Discharge (Home Meds & RX) esomeprazole magnesium 20 mg capsule,delayed release (Nexium) 20 mg PO QDAY 08/18/22 multivitamin 1 tab PO QAM 08/18/22 atorvastatin 40 mg tablet 40 mg PO QDAY #90 tabs 08/31/22 blood sugar diagnostic ([employer] Systemsuch Ultra Test strips) #100 ea 08/31/22 blood-glucose meter ([employer] Systemsuch Ultra2 Meter) #1 ea 08/31/22 lancets 28 gauge ([employer] Systemsuch ShwrümSoft Lancing Devices) #100 ea 08/31/22 metformin 500 mg tablet See Rx Instructions .Route .COMPLEX #30 tabs 10/22/22 fluconazole 150 mg tablet (Diflucan) 150 mg PO Q3D 2 doses #2 tabs 03/03/23 trazodone 150 mg tablet 150 mg PO QHS PRN insomnia #90 tabs 03/03/23 amoxicillin 875 mg-potassium clavulanate 125 mg tablet 1 tab PO BID #14 tabs 06/02/23 metoclopramide HCl 5 mg tablet (Reglan) 5 mg PO Q6H PRN nausea #30 tabs 06/02/23 pantoprazole 40 mg tablet,delayed release (Protonix) 40 mg PO DAILY #30 tabs 06/02/23 Discharge Plan Discharge Discharge Orders: Discharge Patient (ONCE); Ordered 06/02/23 Ordered By: SATINDER RAMSEY Activity Restrictions/Additional Instructions: Full liquid diet - advance as tolerated like discussed Activity as tolerated Follow-up with PCP next week. New Medications: Augmentin 875mg twice a day x 7 days Reglan 5 mg every 6 hours as needed for nausea Protonix 40 mg daily Instructions: Dehydration (ED), Colitis (ED), Full Liquid Diet (GEN) Patient Disposition: HOME SELF-CARE Prescriptions: New pantoprazole [Protonix] 40 mg tablet,delayed release (DR/EC) 40 mg PO DAILY Qty: 30 0RF amoxicillin-pot clavulanate 875-125 mg tablet 1 tab PO BID Qty: 14 0RF metoclopramide HCl [Reglan] 5 mg tablet 5 mg PO Q6H PRN (Reason: nausea) Qty: 30 0RF No Action (DME) blood-glucose meter [OneTouch Ultra2 Meter] Misc See Rx Instructions .ROUTE Qty: 1 0RF Rx Instructions: As directed; once daily and as needed (DME) OneTouch Ultra Test Strip See Rx Instructions .ROUTE Qty: 100 3RF Rx Instructions: As directed, once daily and as needed (DME) lancets [[employer]Touch SureSoft Lancing Dev] 28 gauge misc See Rx Instructions .ROUTE Qty: 100 3RF Rx Instructions: As directed, once daily and as needed atorvastatin 40 mg tablet 40 mg PO QDAY Qty: 90 3RF metformin 500 mg tablet See Rx Instructions .ROUTE .COMPLEX Qty: 30 0RF Dose Instruction: TAKE 1/2 TABLET DAILY THEN INCREASE TO 1/2 TABLET TWICE DAILY IF NO SIDE EFFECTS TAKE WITH FOOD Rx Instructions: TAKE 1/2 TABLET DAILY THEN INCREASE TO 1/2 TABLET TWICE DAILY IF NO SIDE EFFECTS TAKE WITH FOOD trazodone 150 mg tablet 150 mg PO QHS PRN (Reason: insomnia) Qty: 90 0RF fluconazole [Diflucan] 150 mg tablet 150 mg PO Q3D 0 Days Qty: 2 0RF Rx Instructions: may repeat second dose 72 hrs after first dose if symptoms persist esomeprazole magnesium [Nexium] 20 mg capsule,delayed release(DR/EC) 20 mg PO QDAY multivitamin Tablet 1 tab PO QAM Did you review [place] [employer] for ALL controlled substances?: No Discussed opioids are addictive and Narcan is available by prescription or from pharmacy.: No Condition: Stable Referrals: LADONNA DOWNEY PA-C [Primary Care Provider] - 06/09/23 1:45 pm
== END 2023-06-02 11:05 | disposition home or self-care (01) ==
LOC: ED 07:43 → MEDSURG B 07:43 → UNDODISIN 06-02 11:05
PROVIDERS: ADMIT Nurse Practitioner Family; ATTEND Nurse Practitioner Family
DX: J96.01 Acute respiratory failure with hypoxia; E78.00 Pure hypercholesterolemia, unspecified; E87.1 Hypo-osmolality and hyponatremia; N39.0 Urinary tract infection, site not specified; Z20.822 Contact with and (suspected) exposure to COVID-19; F17.210 Nicotine dependence, cigarettes, uncomplicated; E86.0 Dehydration; Z91.199 Patient's noncompliance with other medical treatment and regimen due to unspecified reason; R11.2 Nausea with vomiting, unspecified; K52.9 Noninfective gastroenteritis and colitis, unspecified; E11.9 Type 2 diabetes mellitus without complications